=== PATIENT | female | born 1995 | race Caucasian/White ===

== ENCOUNTER 2017-03-02 16:05 | Emergency (ER) | payer BC ==
[2017-03-02] MEDS ORDERED: KETOROLAC TROMETHAMINE 30 MG/ML VIAL IM ONE (16:31)
[2017-03-02] MEDS ORDERED: KETOROLAC TROMETHAMINE 60 MG/2 ML VIAL IM ONE (16:36)
[2017-03-02 18:13] VITALS: BP 124/69
--- NOTE | 2017-03-31 13:34 | ERNOTE ---
Chest Pain/Cardiac HPI Chief Complaint: Chest Pain Time Seen by Provider: 03/02/17 16:19 Source: patient Immunizations: IMMUNIZATION HX Immunizations Up to Date Yes History of Influenza Vaccine No Allergies/Adverse Reactions: Allergies morphine Allergy (Verified 03/02/17 16:12) Home Medications: HOME MEDICATIONS NK [No Home Medication] 03/02/17 [Last Taken Unknown] Narrative: Patient presents with left anterolateral chest wall pain approximately the level of the ninth and 10th ribs. She states that she's had excessive coughing and strained her chest wall during that those episodes. Timing: intermittent Severity/Quality: moderate Location: left chest Chest Pain Radiation: no radiation Activities at Onset: other - coughing Modifying Factors - Worsens: Present: coughing Associated Symptoms: Present: denies symptoms Prior Chest Pain/Cardiac Workup: Reports: no prior cardiac workup Review of Systems - Review of Systems Constitutional: Present: See HPI EYE: Present: no symptoms reported ENT: Present: no symptoms reported Respiratory: Present: no symptoms reported Cardiology: Present: See HPI Gastrointestinal/Abdominal: Present: no symptoms reported Genitourinary: Present: no symptoms reported Musculoskeletal: Present: no symptoms reported Skin: Present: no symptoms reported Neurological: Present: no symptoms reported Endocrine: Present: no symptoms reported Hematologic/Lymphatic: Present: no symptoms reported Psych: Present: no symptoms reported - Patient's Past Medical History Patient History - Medical: Anemia, GERD Patient History - Cardiac/Respiratory: Asthma Patient History - Cancer: No Hx of Cancer Patient History - Surgical Procedures: T & A Patient History - Other: None - Social History Living Situations: home Psych History: No pertinent hx Alcohol Use: none Drug Use: none - Immunizations Immunizations Up to Date: Yes History of Influenza Vaccine: No Physical Exam - Physical Exam General Appearance: Present: wd/wn, alert, moderate distress Eye Exam: Normal inspection: bilateral, PERRL: bilateral Ears, Nose, Throat: Present: normal ENT inspection, H, normal pharynx Neck: Present: normal inspection, nontender Respiratory: Present: no respiratory distress, no accessory muscle use, chest tenderness, wheezing Cardiovascular/Chest: Present: regular rate, rhythm, no murmur, normal peripheral pulses Gastrointestinal/Abdominal: Present: normal bowel sounds, nontender, nondistended, soft, no organomegaly Rectal Exam: Present: deferred Back Exam: Present: normal inspection, normal range of motion Extremity Exam: Present: normal inspection, non-tender, no edema, normal range of motion Neurological Exam: Present: alert, oriented, normal mood/affect Skin Exam: Present: normal color, warm/dry Lymphatic Exam: Present: no adenopathy ED Progress - Results and Orders Patient's Lab Results:: I have reviewed the patient's lab results. - Vital Signs Patient's Vital Signs:: I have reviewed the patient's vital signs. Vital Signs: Vital Signs 03/02/17 03/02/17 03/02/17 16:08 16:12 16:23 Temperature 36.4 C L Pulse Rate 80 86 79 Respiratory 12 16 Rate Blood Pressure 122/72 119/67 O2 Sat by Pulse 100 96 Oximetry 03/02/17 03/02/17 03/02/17 16:38 17:03 17:05 Temperature Pulse Rate 84 78 78 Respiratory 14 16 Rate Blood Pressure 112/67 110/66 O2 Sat by Pulse 97 99 Oximetry - X-Ray X-Ray #1 X-Ray: chest Interpretation: Reviewed by me - Progress/Reassessment Chief Complaint: Chest Pain Progress:: Improved Plan - Plan Plan: Patient will be started on Naprosyn per costochondritis and prednisone for her bronchospasm. She agrees to use her inhaler at home and will follow up with her family physician as needed. Departure - Departure Clinical Impression: Costochondritis Instructions: Costochondritis, [id number] Referrals: Nini Ruth DO [Primary Care Provider] -
== END 2017-03-02 17:28 | disposition home or self-care (01) ==
LOC: ER 16:05
DX: M94.0 Chondrocostal junction syndrome [Tietze] (principal)